=== PATIENT | female | born 1995 | race Caucasian/White ===

== ENCOUNTER 2017-03-22 16:28 | Emergency (ER) | payer OTHER ==
[~2017-03-22] VITALS: Ht 160 cm; Wt 110.2 kg
[2017-03-22 16:47] VITALS: BP_SYST 147
--- NOTE | 2017-03-22 17:14 | NUR ---
Pt to hallway chair 2 accompanied by father.
--- NOTE | 2017-03-22 17:20 | NUR ---
Patient to ER via [place] with father with c/o left eye redness/swelling, left ear pain, and left sided nose bleed. Patient is awake, alert and oriented in no acute distress. Patient rates pain as 8/10. Before patient came to [facility], she was able to provide a urine sample which was sent to lab. Awaiting evaluation by ER MD-will continue to observe and assess.
--- NOTE | 2017-03-22 17:50 | NUR ---
Back from CT ambulatory with steady gait. Tolerated well.
--- NOTE | 2017-03-22 18:50 | NUR ---
Patient resting quietly in no acute distress, awaiting evaluation by ER MD.
--- NOTE | 2017-03-22 19:45 | NUR ---
Dr Carrero at bedside to evaluate patient. Awaiting dispo.
[2017-03-22 20:16] VITALS: BP_SYST 135
--- NOTE | 2017-03-22 20:16 | NUR ---
Patient given written and verbal discharge instructions and verbalizes understanding. ER MD discussed with patient the results and treatment provided. Patient in stable condition. ID arm band removed. IV catheter removed intact and dressing applied, no active bleeding. Rx of ibuprofen, cipro floxacin eye drops given. Patient educated on pain management and to follow up with PMD. Pain Scale 0/10. Opportunity for questions provided and answered.
== END 2017-03-22 20:16 | disposition home or self-care (01) ==
LOC: SED 16:28
DX: H10.89 Other conjunctivitis (principal); B96.89 Other specified bacterial agents as the cause of diseases classified elsewhere; H65.92 Unspecified nonsuppurative otitis media, left ear; Z90.49 Acquired absence of other specified parts of digestive tract
CPT/HCPCS: 70486-TC; 81025; 99284